=== PATIENT | male | born 1990 ===

== ENCOUNTER 2021-05-29 07:42 | Emergency (ER) | payer BC, OTHER ==
--- NOTE | 2021-05-29 08:19 | EDM.PDOC ---
ED HPI GENERAL MEDICAL PROBLEM - General Chief Complaint: General Stated Complaint: [facility] COVID TEST POSITIVE/ HAS SYMPTOMS Time Seen by Provider: 05/29/21 08:15 Source of Information: Reports: Patient, RN, RN Notes Reviewed History Limitations: Reports: No Limitations - History of Present Illness INITIAL COMMENTS - FREE TEXT/NARRATIVE: Pt presents to ER with c/o of being COVID exposed at work last week and now has c/o fever, headache, lost of taste & smell, body aches, and mild cough. Denies shortness of breath or chest pain. Pt states he took a [facility] home COVID test today and it was positive. Onset: Gradual Onset Date: 05/28/21 Duration: Constant Location: Reports: Generalized Quality: Reports: Ache Severity: Mild Improves with: Reports: None Worsens with: Reports: None Context: Reports: Sick Contact Associated Symptoms: Reports: No Other Symptoms - Related Data Allergies Allergy/AdvReac Type Severity Reaction Status Date / Time Penicillins Allergy Hives Verified 05/29/21 08:24 Home Meds: Home Meds . [No Known Home Meds] 05/29/21 [History] Past Medical History - Past Health History Medical/Surgical History: Denies Medical/Surgical History Social & Family History - Family History Family Medical History: No Pertinent Family History - Living Situation & Occupation Occupation: Employed ED ROS GENERAL - Review of Systems Review Of Systems: Comprehensive ROS is negative, except as noted in HPI. ED EXAM, GENERAL - Physical Exam Exam: See Below Exam Limited By: No Limitations General Appearance: Alert, WD/WN, No Apparent Distress, Anxious Eye Exam: Bilateral Eye: Normal Inspection Nose: Normal Inspection, Normal Mucosa, No Blood Throat/Mouth: Normal Inspection, Normal Lips, Normal Teeth, Normal Gums, Normal Oropharynx, Normal Voice, No Airway Compromise Head: Atraumatic, Normocephalic Neck: Normal Inspection, Supple, Non-Tender, Full Range of Motion Respiratory/Chest: No Respiratory Distress, Lungs Clear, Normal Breath Sounds, No Accessory Muscle Use, Chest Non-Tender Cardiovascular: Normal Peripheral Pulses, Regular Rate, Rhythm, No Edema, No Gallop, No JVD, No Murmur, No Rub Extremities: Normal Inspection Neurological: Alert, Oriented, CN II-XII Intact, Normal Cognition, Normal Gait, No Motor/Sensory Deficits Psychiatric: Normal Mood, Anxious Skin Exam: Warm, Dry, Intact, Normal Color, No Rash Course - Vital Signs Last Recorded V/S: Last Vital Signs Temp 98.6 F 05/29/21 07:58 Pulse 66 05/29/21 07:58 Resp 20 05/29/21 07:58 BP 118/65 05/29/21 07:58 Pulse Ox 97 05/29/21 07:58 Departure - Departure Time of Disposition: 08:34 Disposition: Home, Self-Care 01 Condition: Good Clinical Impression: COVID-19 virus infection - Discharge Information *PRESCRIPTION DRUG MONITORING PROGRAM REVIEWED*: Not Applicable *COPY OF PRESCRIPTION DRUG MONITORING REPORT IN PATIENT TAMIR: Not Applicable Instructions: 10 Things You Can Do to Manage Your COVID-19 Symptoms at Home - CDC (01/08/2021), What You Should Know About COVID-19 to Protect Yourself and Others - [facility] [place] Forms: ED Department Discharge Additional Instructions: Take over the counter Enteric Coated Aspirin 81m tablets by mouth once a day for 14 days to reduce the risk of COVID associated blood clots. Isolate at home for 10 days per CDC guidelines. If your symptoms last longer than 10 days do not return to work until you have 2 negative COVID tests from your primary clinic or the health department testing center. Return to the ER or call 911 if you develop any difficulty breathing. Sepsis Event Note (ED) - Evaluation Sepsis Screening Result: No Definite Risk - Focused Exam Vital Signs: Vital Signs Temp Pulse Resp BP Pulse Ox 05/29/21 07:58 98.6 F 66 20 118/65 97
== END 2021-05-29 08:55 | disposition home or self-care (01) ==
LOC: DL.ED 07:42
DX: U07.1 COVID-19 (principal); Z88.0 Allergy status to penicillin
CPT/HCPCS: 99283

== ENCOUNTER 2022-12-05 12:18 | Emergency (ER) | payer OTHER, BC | END 2022-12-05 13:37 | disposition home or self-care (01) | LOC: DL.ED 12:18 | DX: S22.32XA Fracture of one rib, left side, initial encounter for closed fracture (principal); Z88.0 Allergy status to penicillin; V86.95XA Unspecified occupant of 3- or 4- wheeled all-terrain vehicle (ATV) injured in nontraffic accident, initial encounter; Y92.410 Unspecified street and highway as the place of occurrence of the external cause | CPT/HCPCS: 71100-LT; 99283 ==

== ENCOUNTER 2024-12-08 01:18 | Emergency (ER) | payer BC | END 2024-12-08 01:34 | disposition home or self-care (01) | LOC: DL.ED 01:18 | DX: Z02.1 Encounter for pre-employment examination (principal); Z88.1 Allergy status to other antibiotic agents | CPT/HCPCS: 99282; 99283 ==